=== PATIENT | female | born 1985 | race Caucasian/White ===

== ENCOUNTER 2017-02-20 12:32 | Emergency (ER) | payer OTHER ==
[~2017-02-20 12:32] MED LIST: ACETAMINOPHEN; ALBUTEROL20 ml INH; ALEVE220 M1; BACTRIM DS TABL1 TA1 PO; CLEOCIN PO; DELTASONE20 MG PO; DICLOFENAC PO; EFFEXOR PO; FLAGYL PO; LORTAB 7.5-3251 EACH PO; MORGIDOX100 MG PO; MOTRIN600 M1; NO MEDICATIONS; PHENERGAN25 M1 DOB; PRILOSEC20 M1 PO; PROMETHAZINE D118 ML PO; ROBAXIN PO; ROBAXIN500 MG PO; ROBITUSSIN AC PO; TYLENOL #3 PO; WELLBUTRIN XL PO; ZITHROMAX PO; [UNRECOGNIZED DRUG - OTHER] PO
== END 2017-02-20 13:04 | disposition home or self-care (01) ==
LOC: SED 12:32
DX: S05.02XA Injury of conjunctiva and corneal abrasion without foreign body, left eye, initial encounter (principal); F17.210 Nicotine dependence, cigarettes, uncomplicated; Z88.0 Allergy status to penicillin; X58.XXXA Exposure to other specified factors, initial encounter
CPT/HCPCS: 99283